=== PATIENT | male | born 1965 | race Caucasian/White ===

== ENCOUNTER 2018-01-04 16:43 | Inpatient (IN) ==
[2018-01-04] MEDS ORDERED: Aluminum/Magnesium/Simethacone Susp 30 ML UDC PO PRN (21:39)
[2018-01-04] MEDS ORDERED: Acetaminophen 325 MG Tablet PO PRN (21:39)
--- NOTE | 2018-01-05 10:28 | P.TTN ---
- Patient Problems Problems: 1. Discharge planning 2. Medication compliance 3. Knowledge deficit 4. Lack of coping skills - Progress Toward Goals Provider Present: Dr. Rock Zuniga Provider Input: 01/05/18: Patient is new. Psychiatrist will complete eval today and will update therapist at a later time. Nurse Input: 01/05/18: Per SHERITA Klein, patient has been staying in his bedroom and isolating. Psychiatric Counselors Present: Other Psychiatric Therapist Input: 01/05/18: Pt is new, BPSA to be completed today by counselor. D/C pending to findings after BPSA is completed. Alber Ortega LM. Group Spec/RT/OT/ORO Present: Phani Reynaga OT, PREETHI Waldron Occupational Therapist Input: 01/05/18: Pt is new, will assess attendance to groups later today. - Documentation Teaching Recipient: Patient
[2018-01-05] MEDS ORDERED: Melatonin 5 MG Tablet PO PRN (10:43)
[2018-01-05 11:09] LABS: Calcium 8.8 mg/dL (8.5-10.1); Carbon Dioxide 31.3 meq/L (21.0-32.0); Potassium 4.5 meq/L (3.5-5.1)
--- NOTE | 2018-01-05 11:10 | MH ---
cc: Thom Zuniga MD DATE OF ADMISSION: 01/04/2018 ADMITTING DIAGNOSES: 1. Adjustment disorder with depressed mood, F43.21. Strong suspicion for malingering for intermediate. 2. Polysubstance abuse including cannabis and cocaine, F19.10. LEGAL STATUS: The patient is capacitated to consent for admission and for medication/treatment. Voluntary status. HISTORY OF PRESENT ILLNESS: Mr. Hermosillo is a 52-year-old male with a reported history of schizophrenia, bipolar disorder, posttraumatic stress disorder who presents in transfer from [facility] under a Tian Act. Documentation from outside hospital reviewed. The patient presented there complaining of suicidal ideation with plan to take someone else's medications and overdose. Reviewing our electronic medical record, I see no previous psychiatric contact within our system. The patient is seen and examined with nurse. Chart reviewed. Case discussed with nursing staff. Of note, nursing staff has reason to believe that the patient is conspiring with another homeless patient on the unit to malinger for intermediate. On my examination today, the patient's presentation is fairly manipulative and malingering for intermediate is strongly suspected. He tells me "if I go back on the street, I am going to mess up." He denies any suicidal ideation on the inpatient unit, but does imply that he would experience resurgence of suicidal ideation if he were discharged. Otherwise, the patient has a paucity of psychiatric symptoms. Mood is reportedly a little bit depressed, but he reports no associated symptoms of depression. No hypomanic or manic symptoms. Denies audiovisual hallucinations. No delusional material elicited. Remainder of the psychiatric ROS is negative. No acute physical complaints. PAST PSYCHIATRIC HISTORY: The patient reports multiple previous psychiatric diagnoses. He notes that he has been on Paxil, lithium, BuSpar and trazodone in the past. He is reportedly poorly adherent with psychotropic medications and followup. He is not presently under the care of an outpatient psychiatrist. He reports that he was recently discharged from [facility] 3 days ago and "they let me out way too early." He reports 17 suicide attempts in the past year, including by overdose, aborted jump from a height, aborted impact [place] FAMILY HISTORY: The patient denies any family history of mental illness including suicide. CHEMICAL DEPENDENCY HISTORY: The patient admits to use of cannabis and powder cocaine whenever he can. He denies any use of alcohol, benzodiazepines or opiates. No other substance use reported. SOCIAL HISTORY: The patient is originally from [place]. He most recently has been living homeless in the [place] area. He has an 11th grade education. 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 He is applying for disability. Denies any legal history. Denies any access to guns or firearms. Denies any history. He is a Hinduism. STRENGTHS: Able to access clinical care. Verbally fluent. PAST MEDICAL HISTORY: Includes a history of hypertension. MEDICATIONS: 1. Lisinopril 10 mg daily. ALLERGIES: GEODON, STRAWBERRY AND PINEAPPLE. REVIEW OF SYSTEMS: Except as noted in the HPI, this is negative. PHYSICAL EXAMINATION: VITAL SIGNS: Temperature 97.9, pulse 47 per minute, respirations 17, blood pressure 113/74, pulse oximetry 98% on room air. GENERAL: Physical examination was completed by ED provider at outside hospital. On my examination today, the patient appears to be in no acute physical distress. No motor abnormalities noted. No signs of intoxication or withdrawal noted. LABORATORY DATA: Reviewed: CBC is unremarkable. White blood cell count, hemoglobin and platelet count are within normal limits. BMP is unremarkable. Renal function is within normal limits. Tylenol and salicylate level are undetectable. Alcohol level undetectable. Urine toxicology positive for cocaine. MENTAL STATUS EXAMINATION: The patient is in hospital attire. He is fairly well groomed and maintaining basic hygiene. He is awake and alert and oriented x3. No evidence of delirium. No motor abnormalities noted. Speech is within normal limits for rate, tone, and volume. Language and fund of knowledge are average. Focus and concentration are intact. Memory grossly intact on clinical exam. Mood is reportedly somewhat depressed and affect fairly full and reactive. Thought process linear. No loosening of associations. No delusional material elicited. Denies audiovisual hallucinations. Ongoing vague suicidal ideation if discharged. Denies any urge to hurt himself or any plan or intent to hurt himself on the inpatient unit. No homicidal ideation. Insight and judgment are fair. ASSESSMENT AND PLAN: This is a 52-year-old male with psychiatric history as detailed above, who presents in transfer from outside hospital under Tian Act. On my examination today, the patient is an extremely vague historian. There is a distinct manipulative quality to his presentation, and malingering for intermediate is suspected. The patient was recently reportedly discharged from another Inpatient Psychiatric Unit and felt that he was released too soon, having reportedly been kept for 3 days. I will plan to admit the patient to the Inpatient Psychiatric Unit for observation. Admit inpatient. Voluntary status. For management of the patient's reported dysphoria, I will resume Paxil 20 mg daily on which patient has reportedly previously been placed. Atarax as needed for anxiety. Melatonin as needed for sleep. I will resume the patient's lisinopril. We will endeavor to obtain the records from [facility]. Vitals every shift. Counselor to see. Collateral information. Disposition planning. ESTIMATED LENGTH OF STAY: 3-5 days. Thom Zuniga MD DBShirley/sv , 10:40 AM , 10:53 AM DOMINIC
[2018-01-05 11:13] LABS: Chol/HDL Ratio 3.02 Ratio; HDL Cholesterol 51.2 mg/dL (40.0-60.0)
[2018-01-05 11:42] LABS: Hemoglobin A1c 5.5 % (4.3-6.0)
[2018-01-06] MEDS: Lisinopril 10 MG Tablet PO SCH (08:54)
--- NOTE | 2018-01-06 16:33 | P.PNPSY ---
Subjective Remarks: Reviewed electronic medical records and discussed case with staff. Follow-up was conducted in the hallway with SHERITA Klein present. She reports that the patient has been compliant with his medications and had no behavioral disturbances throughout his stay. He states that he feels all right but reports that he did not sleep very well. He claims his appetite's been good and rates his mood as depressed. His affect is somewhat flat. He denies suicidal and homicidal ideation Assessment and Plan - Assessment (1) Adjustment disorder with depressed mood Code(s): F43.21 - Adjustment disorder with depressed mood Status: Acute - Plan Plan: Patient will be reevaluated by the attending psychiatrist. Continue with current treatment plan. Justification for Continued Inpatient Stay: Moving this patient to a less restrictive environment would likely result in decompensation.
[2018-01-07] MEDS: Lisinopril 10 MG Tablet PO SCH (08:24)
--- NOTE | 2018-01-07 11:35 | P.PNPSY ---
Subjective Remarks: Reviewed electronic medical records and discussed case with staff. Follow-up was conducted in the patient's room with SHERITA Klein. Patient endorses alot of difficulty falling and maintaining sleep. He states that he usually takes Trazodone which helps. He is seclusive, withdrawn and quiet. He is eating well. Denies SI/HI. Denies AVH. No delusions. No paranoia. Review of Systems All other systems reviewed negative except as stated in HPI Mental Status Examination Appearance: Appropriate Consciousness: Alert Orientation: Person, Place, Situation Motor Activity: Normal gait Speech: Unremarkable Language: Adequate Fund of Knowledge: Adequate Attention and Concentration: Adequate Memory: Unremarkable Mood: Sad Affect: Flat, Blunt Thought Process & Associations: Linear Thought Content: Appropriate Hallucination Type: None Delusion Type: None Suicidal Ideation: No Suicidal Plan: No Suicidal Intention: No Homicidal Ideation: No Homicidal Plan: No Homicidal Intention: No Insight: Adequate Judgment: Adequate Assessment and Plan - Assessment (1) Adjustment disorder with depressed mood Code(s): F43.21 - Adjustment disorder with depressed mood Status: Acute - Plan Plan: Patient will be reevaluated by the attending psychiatrist. Continue with current treatment plan. Justification for Continued Inpatient Stay: Moving patient to a less restrictive environment may result in his decompensation.
[2018-01-07] MEDS: traZODone 100 MG Tablet PO SCH (20:57)
[2018-01-08] MEDS: Lisinopril 10 MG Tablet PO SCH (08:41)
[2018-01-08] MEDS ORDERED: Naproxen 375 MG Tablet PO PRN (10:32)
--- NOTE | 2018-01-08 10:32 | P.PNPSY ---
Subjective Remarks: Patient seen and examined with nurse. Chart reviewed. Case discussed with nursing staff. No behavioral issues noted. Nursing staff suspects malingering. On my examination today, the patient says that he slept a little better with the addition of trazodone. He says that he has taken is much as 250 mg of trazodone in the past. Mood remains somewhat depressed although the patient denies any suicidal ideation. He wants to get into a chemical dependency treatment program. Denies side effects from medications. No acute physical complaints. Does complain of some chronic knee pain and requests additional analgesic for this. Vital Signs Temp Pulse Resp BP Pulse Ox 01/08/18 05:49 98.0 F 48 L 17 101/52 L 97 01/07/18 17:36 98.6 F 58 L 18 139/74 100 01/07/18 16:59 98.6 F 58 L 18 139/74 100 Intake and Output 01/07/18 01/08/18 01/08/18 22:59 06:59 14:59 Other: Weight 84 kg Labs reviewed. Review of Systems All other systems reviewed negative except as stated in HPI Mental Status Examination Appearance: Appropriate Consciousness: Alert Orientation: x4 Motor Activity: Other (No motor abnormalities noted) Speech: Unremarkable Language: Adequate Fund of Knowledge: Adequate Attention and Concentration: Adequate Memory: Unremarkable Mood: Other (Reports depressed) Affect: Appropriate Thought Process & Associations: Intact Thought Content: Appropriate Hallucination Type: None Delusion Type: None Suicidal Ideation: No Suicidal Plan: No Suicidal Intention: No Homicidal Ideation: No Homicidal Plan: No Homicidal Intention: No Insight: Adequate Judgment: Adequate Assessment and Plan - Assessment (1) Adjustment disorder with depressed mood Code(s): F43.21 - Adjustment disorder with depressed mood Status: Acute - Plan Plan: Continue Paxil and trazodone as ordered. I had considered titrating patient's trazodone but because of potential interaction between Paxil and trazodone, I will hold off on doing so for now. Patient does seem to be tolerating current dose well without side effects. Add Naprosyn for musculoskeletal pain. Continue to monitor on the inpatient unit. Continue other medications and care as ordered. Justification for Continued Inpatient Stay: Risk for decompensation in less restrictive environment. Discharge Planning: Possibly sober living. Case discussed with counselor. Request Healthcare Surrogate/Guardian Advocate?: No
[2018-01-08 17:04] VITALS: RESP 18
[2018-01-08] MEDS: traZODone 100 MG Tablet PO SCH (20:20)
[2018-01-09 05:42] VITALS: BP 123/74; PULSE 56; TEMP 98.1; O2SAT 96
[2018-01-09] MEDS: Lisinopril 10 MG Tablet PO SCH (08:48)
--- NOTE | 2018-01-09 10:02 | P.PNPSY ---
Mental Status Examination Appearance: Appropriate Consciousness: Alert Orientation: x4 Motor Activity: Other (No motor abnormalities noted) Speech: Unremarkable Language: Adequate Fund of Knowledge: Adequate Attention and Concentration: Adequate Memory: Unremarkable Mood: Other (Reports depressed) Affect: Appropriate Thought Process & Associations: Intact Thought Content: Appropriate Hallucination Type: None Delusion Type: None Suicidal Ideation: No Suicidal Plan: No Suicidal Intention: No Homicidal Ideation: No Homicidal Plan: No Homicidal Intention: No Insight: Adequate Judgment: Adequate Assessment and Plan - Assessment (1) Adjustment disorder with depressed mood Code(s): F43.21 - Adjustment disorder with depressed mood Status: Acute - Plan Request Healthcare Surrogate/Guardian Advocate?: No
--- NOTE | 2018-01-09 11:19 | P.DSPSY ---
Psychiatry Discharge Summary Inpatient Psychiatric care?: Yes Advance Directives: No Mental Health Advance Directive: No Health Care Proxy: No - Admission Admission Date: January 04, 2018 19:08 Brief History: Mr. Hermosillo is a 52-year-old male with a reported history of schizophrenia, bipolar disorder, posttraumatic stress disorder who presents in transfer from [facility] under a Tian Act. Documentation from outside hospital reviewed. The patient presented there complaining of suicidal ideation with plan to take someone else's medications and overdose. Reviewing our electronic medical record, I see no previous psychiatric contact within our system. The patient is seen and examined with nurse. Chart reviewed. Case discussed with nursing staff. Of note, nursing staff has reason to believe that the patient is conspiring with another homeless patient on the unit to malinger for fdc. On my examination today, the patient's presentation is fairly manipulative and malingering for fdc is strongly suspected. He tells me "if I go back on the street, I am going to mess up." He denies any suicidal ideation on the inpatient unit, but does imply that he would experience resurgence of suicidal ideation if he were discharged. Otherwise, the patient has a paucity of psychiatric symptoms. Mood is reportedly a little bit depressed, but he reports no associated symptoms of depression. No hypomanic or manic symptoms. Denies audiovisual hallucinations. No delusional material elicited. Remainder of the psychiatric ROS is negative. No acute physical complaints. Tobacco Use In Past 30 Days: Yes How Often Do You Have a Drink Containing Alcohol: 4 or more times a week Hospital Course: Patient was admitted to a locked, inpatient psychiatric unit. Appropriate precautions were in place throughout patient's hospital stay. Patient was seen and examined on the unit by psychiatry and also visited by counselor. Psychotropic medications were adjusted. Patient tolerated medication changes well without side effects. There was no evidence of any suicidality or homicidality on the inpatient unit. There was no evidence of self-care deficit. On the day of discharge: Patient seen and examined with nurse. Chart reviewed. Case discussed with nursing staff. No behavioral issues noted overnight. Case discussed in treatment team where therapists note patient is entitled and demeaning in his interactions with staff and peers. Malingering for fdc is suspected by therapists. On my initial evaluation today, I note that the patient is smiling and socializing with peers. He does adopt a more somber mien for my interview with him. He is bargaining to stay until Monday. Patient subsequently learns that he has a bed today at [facility]. On re-evaluation, I note a significant change for the better. Patient is now euthymic in our interaction as he is with peers. He is requesting discharge to sober living today. He denies any suicidal or homicidal ideation, intent or plan. I can elicit no depressive or hypomanic/ manic symptoms. He has no audiovisual hallucinations, nor does he describe any delusional beliefs. He denies any side effects from medications. He has no physical complaints. Suicide and violence risk assessment on day of discharge both suggest lower imminent risk from mental illness, and patient's level of function is adequate for outpatient care. With the benefit of observation on the unit, malingering for fdc is suspected in the present case, as evidenced most recently by his rapid 'improvement' upon learning that he was accepted at [facility]. The patient has maximized benefit from this inpatient psychiatric hospital stay. [facility] followup as arranged by the counselor. Patient is also to follow up with primary care. Patient to return to psychiatric emergency room for any concerning symptoms as part of a general safety plan. - Discharge Discharge Date: 01/09/18 - Discharge Diagnosis (1) Adjustment disorder with depressed mood Diagnosis: Principal (resolved) Code(s): F43.21 - Adjustment disorder with depressed mood Status: Acute (2) Polysubstance abuse Diagnosis: Secondary Code(s): F19.10 - Other psychoactive substance abuse, uncomplicated Status: Chronic Discharge Disposition: Sober living - Discharge Instructions Discharge Diet: Regular Diet Activities You Can Perform: Weight Bearing As Tolerat - Discharge Time <= 30 minutes Mental Status Examination Appearance: Appropriate Consciousness: Alert Orientation: x4 Motor Activity: Other (No abnormal motor movements noted. No signs of withdrawal noted.) Speech: Unremarkable Language: Adequate Fund of Knowledge: Adequate Attention and Concentration: Adequate Memory: Unremarkable Mood: Appropriate Affect: Appropriate, Euthymic Thought Process & Associations: Intact, Logical, Goal directed, Linear Thought Content: Appropriate Hallucination Type: None Delusion Type: None Suicidal Ideation: No Suicidal Plan: No Suicidal Intention: No Homicidal Ideation: No Homicidal Plan: No Homicidal Intention: No Insight: Adequate Judgment: Adequate Discharge/Advance Care Plan - Results Vital Signs: Last Vital Signs Temp 98.1 F 01/09/18 05:40 Pulse 56 L 01/09/18 05:40 Resp 18 01/09/18 05:40 BP 123/74 01/09/18 05:40 Pulse Ox 96 01/09/18 05:40 Lab Results: Laboratory Results Hemoglobin A1c 5.5 % (4.3-6.0) 01/05/18 09:41 Triglycerides 56 mg/dL (42-150) 01/05/18 09:41 Cholesterol 155 mg/dL (120-200) 01/05/18 09:41 LDL Cholesterol, Calc 93 mg/dL (0-99) 01/05/18 09:41 HDL Cholesterol 51.2 mg/dL (40.0-60.0) 01/05/18 09:41 TSH 0.929 uIU/mL (0.358-3.740) 01/05/18 09:41 Summary of Procedures: None done. Pending Results: None - Medications Number of antipsychotic medications at discharge: 0 - Discharge Care Plan Goals to Promote Your Health: * To prevent worsening of your condition and complications * To maintain your health at the optimal level Directions to Meet Your Goals: Take your medications as prescribed Follow your dietary instruction Follow activity as directed Keep your appointments as scheduled Take your immunizations and boosters as scheduled If your symptoms worsen call your PCP, if no PCP go to Urgent Care Center or Emergency Room For 29/08 questions related to your inpatient stay or results of tests pending at discharge, please contact Dr. Thom Zuniga MD at [phone] Smoking is Dangerous to Your Health. Avoid second hand smoking
--- NOTE | 2018-01-09 14:42 | P.TTN ---
- Patient Problems Problems: 1. Discharge planning 2. Medication compliance 3. Knowledge deficit 4. Lack of coping skills - Progress Toward Goals Provider Present: Dr. Rock Zuniga Provider Input: 01/09/18: Pt is ready for discharge and stable on meds per MD. 01/05/18: Patient is new. Psychiatrist will complete eval today and will update therapist at a later time. Nurse Input: 01/09/18: Per RN Mildred pt is med compliant, and is eating and sleeping well. 01/05/18: Per RN Latoya, patient has been staying in his bedroom and isolating. Psychiatric Counselors Present: Other Psychiatric Therapist Input: 01/09/18: Pt [facility], will be dc today. FIDENCIO Guzmán. 01/05/18: Pt is new, BPSA to be completed today by counselor. D/C pending to findings after BPSA is completed. FIDENCIO Guzmán. Group Spec/RT/OT/ORO Present: Phani Reynaga OT, PREETHI Waldron Occupational Therapist Input: 01/09/18: Pt has not been participating in groups. 01/05/18: Pt is new, will assess attendance to groups later today. - Documentation Teaching Recipient: Patient
== END 2018-01-09 13:20 | disposition home or self-care (01) ==
LOC: H270 19:08
PROVIDERS: ADMIT Psychiatry & Neurology Psychiatry; ATTEND Psychiatry & Neurology Psychiatry